=== PATIENT | male | born 1940 | race Caucasian/White ===

== ENCOUNTER 2020-10-17 21:01 | Inpatient (IN) | payer MEDICARE, OTHER ==
[~2020-10-17] VITALS: Ht 177.8 cm; Wt 74.4 kg
[~2020-10-17 21:01] MED LIST: AVODART0.5 MG PO; BREO ELLIPTA 11 EACH INH; FENOFIBRATE160 MG PO; PLETAL 100 MG100 MG PO; VENTOLIN HFA 66.7 GM INH
[2020-10-18 14:47] LABS: HEMOGLOBIN 9.8 gm/dl (14.0-17.5); RED BLOOD COUNT 3.45 M/UL (4.20-5.50); WHITE BLOOD COUNT 8.8 K/UL (4.5-11.0)
[2020-10-18] MEDS ORDERED: ONDANSETRON ODT4 MG PO (15:42)
[2020-10-18] MEDS ORDERED: ELIQUIS5 MG PO (15:50)
[2020-10-18] MEDS ORDERED: HYDROCODON-ACE1 EAC2 PO (15:51)
[2020-10-18] MEDS ORDERED: MEGESTROL400 MG/12 PO (15:54)
[2020-10-18] MEDS ORDERED: ATORVASTATIN CA20 MG PO (15:55)
[2020-10-18] MEDS ORDERED: MONTELUKAST SOD10 MG PO (15:57)
[2020-10-18] MEDS ORDERED: PROTONIX 40 MG40 M1 PO (15:58)
[2020-10-19 04:20] LABS: HEMOGLOBIN 8.5 gm/dl (14.0-17.5)
[2020-10-19 04:22] LABS: RED BLOOD COUNT 3.01 M/UL (4.20-5.50); WHITE BLOOD COUNT 6.1 K/UL (4.5-11.0)
[2020-10-19] MEDS ORDERED: FAMOTIDINE20 MG PO (12:32)
[2020-10-19] MEDS ORDERED: VOLTREN XR 100100 MG PO (12:34)
[2020-10-19] MEDS ORDERED: LISINOPRIL20 MG PO (12:34)
[2020-10-19] MEDS ORDERED: CLONAZEPAM1 MG PO (15:40)
[2020-10-19] MEDS ORDERED: LOPRESSOR 25 MG25 MG PO (15:57)
[2020-10-20 02:22] LABS: HEMOGLOBIN 8.5 gm/dl (14.0-17.5); RED BLOOD COUNT 3.03 M/UL (4.20-5.50); WHITE BLOOD COUNT 5.3 K/UL (4.5-11.0)
[2020-10-20] MEDS ORDERED: ELIQUIS 2.5 MG2.5 MG PO (14:08)
[2020-10-21 16:12] LABS: IMMUNOGLOBULIN A, QN, SERUM 219 mg/dL (61-437); T-TRANSGLUTAMINASE (TTG) IGA <2 U/mL (0-3)
== END 2020-10-20 16:11 | disposition home or self-care (01) | DRG 683 ==
LOC: PROG CARE 21:01
PROVIDERS: Internal Medicine; Internal Medicine Nephrology; Physician Assistant; ADMIT Family Medicine
DX: N17.0 Acute kidney failure with tubular necrosis (principal); C64.2 Malignant neoplasm of left kidney, except renal pelvis; E87.2 Acidosis; E87.0 Hyperosmolality and hypernatremia; E86.0 Dehydration; A08.4 Viral intestinal infection, unspecified; N18.4 Chronic kidney disease, stage 4 (severe); E87.5 Hyperkalemia; I73.9 Peripheral vascular disease, unspecified; Z20.822 Contact with and (suspected) exposure to COVID-19; N28.1 Cyst of kidney, acquired; Z95.828 Presence of other vascular implants and grafts; Z98.890 Other specified postprocedural states
CPT/HCPCS: 36415; 71045; 80053; 81001; 82550; 82553; 82570; 82607; 82746; 82784; 83036; 83540; 83550; 84156; 84439; 84443; 85025; 85027; 93005; 94640; 94664; 94760; J7120